=== PATIENT | female | born 1955 | race Caucasian/White ===

== ENCOUNTER → 2024-12-24 | Day surgery (SDC) | payer MEDICARE ==
[2024-12-23 10:37] LABS: BASOPHILS # (AUTO) 0.1 (0.0-0.1); BASOPHILS % 0.9 % (0.0-1.0); EOSINOPHILS # (AUTO) 0.2 (0.0-0.4); EOSINOPHILS % 2.5 % (0.0-6.0); HEMATOCRIT 44.8 % (34.2-44.1); HEMOGLOBIN 15.2 g/dL (12.0-16.0); LYMPHOCYTES # (AUTO) 1.5 (1.0-3.2); LYMPHOCYTES % 22.2 % (18.0-39.1); MEAN CORPUSCULAR HEMOGLOBIN 33.5 pg (28-32); MEAN CORPUSCULAR HGB CONC 33.9 g/dL (31-35); MEAN CORPUSCULAR VOLUME 98.7 fL (81-99); MONOCYTES # (AUTO) 0.8 (0.2-0.8); NEUTROPHILS # (AUTO) 4.3 (2.1-6.9); NEUTROPHILS % 63.1 % (38.7-80.0); PLATELET COUNT 266 x10e3/uL (140-360); RED BLOOD COUNT 4.54 x10e6/uL (3.6-5.1); RED CELL DISTRIBUTION WIDTH 13.2 % (11.7-14.4); WHITE BLOOD COUNT 6.81 x10e3/uL (4.8-10.8)
[2024-12-23 10:54] LABS: INR 0.89; PROTHROMBIN TIME 12.6 seconds (11.9-14.5)
[2024-12-23 10:55] LABS: PARTIAL THROMBOPLASTIN TIME 25.5 seconds (23.8-35.5)
[2024-12-23 11:02] LABS: ALBUMIN/GLOBULIN RATIO 1.4 (0.8-2.0); ANION GAP 16.1 mmol/L (8-16); CREATININE, SERUM 1.04 mg/dL (0.57-1.11); POTASSIUM 4.1 mmol/L (3.5-5.1); TOTAL PROTEIN 6.9 g/dL (6.5-8.1)
[2024-12-23 11:11] LABS: BILIRUBIN,TOTAL 0.6 mg/dL (0.2-1.2)
[~2024-12-24] MED LIST: BENICAR5 MG PO; BREZTRI AEROS10.7 GM INH; CALCIUM CITRAT1 EA10 PO; FENTANYL CITRATE/PF 100MCG/2 ML INJ ONE; HYDROCODON-ACE1 EA12 PO; LASIX20 MG PO; LIDOCAINE HCL 2% LOCAL INJ 5 ML SDV VIAL INJ ONE; METOPROLOL SUCC25 MG PO; PANTOPRAZOLE SO40 MG PO; PROPOFOL IV EMULSION 10 MG/ML 20 ML VIAL ONE; SEVOFLURANE INHAL SOLN 250 ML PEN BTL ONE; SPIRONOLACTONE25 MG PO; VENTOLIN HFA18 GM INH; VITAMIN B121000 MCG PO; VITAMIN B150 MG PO; VITAMIN D325 MCG PO
[2024-12-24] MEDS: Vancomycin IV 1 GM VIAL ONE (06:05)
[2024-12-24] MEDS: LACTATED RINGER'S 1,000 ML ONE (06:06)
[2024-12-24] MEDS: SODIUM CHLORIDE 0.9% 250ML 250 ML ONE (06:07)
[2024-12-24 08:16] VITALS: TEMP 97.1
[2024-12-24 09:15] VITALS: BP 139/80; PULSE 64; RESP 11; O2SAT 100
== END | disposition home or self-care (01) ==
LOC: OR 05:24
PROVIDERS: ATTEND Neurological Surgery
DX: G56.01 Carpal tunnel syndrome, right upper limb (principal); J44.9 Chronic obstructive pulmonary disease, unspecified; I10 Essential (primary) hypertension; E78.5 Hyperlipidemia, unspecified; Z71.3 Dietary counseling and surveillance; Z71.82 Exercise counseling; K70.30 Alcoholic cirrhosis of liver without ascites; G95.29 Other cord compression; M54.2 Cervicalgia; M54.50 Low back pain, unspecified; M19.042 Primary osteoarthritis, left hand; M19.041 Primary osteoarthritis, right hand; F17.210 Nicotine dependence, cigarettes, uncomplicated; Z88.0 Allergy status to penicillin; Z01.810 Encounter for preprocedural cardiovascular examination; Z01.812 Encounter for preprocedural laboratory examination; Z01.818 Encounter for other preprocedural examination; Z79.899 Other long term (current) drug therapy
CPT/HCPCS: 36415; 64721; 71046; 80053; 85025; 85610; 85730; 93005; J2003; J2704; J3010; J3370; J7050; J7121